=== PATIENT | male | born 1965 | race Caucasian/White ===

== ENCOUNTER → 2017-04-06 | Outpatient (CLI) | payer BC | END | disposition home or self-care (01) | LOC: ROC 08:52 | PROVIDERS: ATTEND Radiology Radiation Oncology | DX: D32.0 Benign neoplasm of cerebral meninges (principal); Z88.0 Allergy status to penicillin | CPT/HCPCS: 99214; G0463 ==

== ENCOUNTER 2017-04-15 06:43 | Day surgery (SDC) | payer BC ==
[~2017-04-15] VITALS: Ht 167.6 cm; Wt 115.0 kg
[2017-04-15 07:00] VITALS: BP 146/98
[2017-04-15] MEDS ORDERED: NALOXONE 1 MG/ML, 2ML ONE (07:50)
[2017-04-15] MEDS ORDERED: FENTANYL PF 100 MCG/2ML ONE (07:50)
[2017-04-15] MEDS ORDERED: MIDAZOLAM 1 MG/ML, 5ML ONE (07:50)
[2017-04-15] MEDS ORDERED: FLUMAZENIL 0.1 MG/1 ML, 5ML ONE (07:50)
== END 2017-04-15 10:18 ==
LOC: OUT 06:43
PROVIDERS: ATTEND Radiology Radiation Oncology
DX: D32.0 Benign neoplasm of cerebral meninges (principal); Z88.0 Allergy status to penicillin
CPT/HCPCS: 20206; 77012; 88305; 99156; J2250; J3010; 99157; J2310